=== PATIENT | male | born 1975 | race Caucasian/White ===

== ENCOUNTER 2017-04-23 15:15 | Emergency (ER) | payer SELFPAY ==
[~2017-04-23] VITALS: Ht 172.7 cm; Wt 79.5 kg
[2017-04-23 15:16] VITALS: BP 118/62; PULSE 82; RESP 20; TEMP 97.8; O2SAT 96
--- NOTE | 2017-04-23 15:21 | PD ---
Physical Exam Time Seen by Provider: 15:21 Narrative 41 y/o male daily drinker presents for evaluation of violent thoughts for 1.5 months. Endorses methamphetamine use. Vital signs reviewed. Seen at triage desk. Awaiting bed placement. Data Data Last Documented VS Vital Signs Date Time Temp Pulse Resp B/P Pulse Ox O2 Delivery O2 Flow Rate FiO2 04/23/17 15:16 97.8 82 20 118/62 96 Room Air [facility] Medical Record Reviewed: Yes Supervised Visit with MANAN: Darek Desai April 23, 2017 15:21
[2017-04-23 15:36] LABS: MEAN CORPUSCULAR HGB CONC 36.6 % (32.0-36.0)
--- NOTE | 2017-04-23 15:38 | PD ---
HPI Chief Complaint: Alcohol/Drug Intoxication Time Seen by Provider: 15:34 Travel History International Travel<30 days: No Contact w/Intl Traveler<30days: No Traveled to known affect area: No History of Present Illness HPI 41-year-old male arrives stating he has right elbow pain in his head so for several days. He believes the has a splinter in the right elbow which has caused swelling and erythema and tenderness. The pain is constant. Furthermore he explains he needs detox from alcoholism. He states he is a danger to himself and society due to alcoholism. He reports drinking about 1 gallon of alcohol daily. He states that he last drank about one hour ago. He states he will harm others in order to obtain alcohol from people. He also reports abusing amphetamines. During the history of present illness he stated "I'm about to kill himself." PFSH Past Medical History Arthritis: No Asthma: No Autoimmune Disease: No Blood Disorders: No Anxiety: No Depression: No Heart Rhythm Problems: No Cancer: No Cardiovascular Problems: No High Cholesterol: No Chest Pain: No Congestive Heart Failure: No COPD: No Cerebrovascular Accident: No Diabetes: No Diminished Hearing: No Endocrine: No GERD: No Genitourinary: No Headaches: No Hepatitis: No Hiatal Hernia: No Hypertension: No Immune Disorder: No Kidney Stones: No Musculoskeletal: No Neurologic: No Psychiatric: No Reproductive: No Respiratory: No Migraines: No Myocardial Infarction: Yes (PT STATES "COCAINE INDUCED") Renal Failure: No Seizures: No Sickle Cell Disease: No Sleep Apnea: No Thyroid Disease: No Ulcer: No Past Surgical History Abdominal Surgery: No Appendectomy: No Cardiac Surgery: No Cholecystectomy: No Ear Surgery: No Endocrine Surgery: No Eye Surgery: No Genitourinary Surgery: No Oral Surgery: No Thoracic Surgery: No Other Surgery: Yes ( [facility] Social History Alcohol Use: Yes (per hx..[employer], 12-24 PK BEER A DAY) Tobacco Use: Yes (1/2 PK A DAY) Substance Use: Yes Allergies-Medications (Allergen,Severity, Reaction): Coded Allergies: No Known Allergies (Verified , 04/23/17) Reported Meds & Prescriptions Reported Meds & Active Scripts Active No Active Prescriptions or Reported Medications Review of Systems ROS Limitations: Intoxication Physical Exam Narrative GENERAL:41-year-old male well-nourished well-developed no acute distress SKIN: Focused skin assessment warm/dry. HEAD: Atraumatic. Normocephalic. EYES: Pupils equal and round. No scleral icterus. No injection or drainage. ENT: No nasal bleeding or discharge. Mucous membranes pink and moist. NECK: Trachea midline. No JVD. CARDIOVASCULAR: Regular. Tachycardia. RESPIRATORY: No accessory muscle use. Clear to auscultation. Breath sounds equal bilaterally. GASTROINTESTINAL: Abdomen soft, non-tender, nondistended. Hepatic and splenic margins not palpable. MUSCULOSKELETAL: No obvious deformities. No clubbing. No cyanosis. No edema. Erythema/tenderness/swelling R olecranon; no crepitus. NEUROLOGICAL: Awake and alert. No obvious cranial nerve deficits. Motor grossly within normal limits. Normal speech. PSYCHIATRIC: Appropriate mood and affect; insight and judgment normal. Data Data Last Documented VS Vital Signs Date Time Temp Pulse Resp B/P Pulse Ox O2 Delivery O2 Flow Rate FiO2 04/23/17 15:16 97.8 82 20 118/62 96 Room Air Vital signs reviewed Orders Complete Blood Count With Diff (04/23/17 15:34) Comprehensive Metabolic Panel (04/23/17 15:34) Iv Access Insert/Monitor (04/23/17 15:34) Psych Screen (04/23/17 15:34) Lorazepam Inj (Ativan Inj) (04/23/17 15:45) Drug Screen, Random Urine (04/23/17 15:34) Alcohol (Ethanol) (04/23/17 15:34) Salicylates (Aspirin) (04/23/17 15:34) Tylenol (Acetaminophen) (04/23/17 15:34) Sodium Chlor 0.9% 1000 Ml Inj (Ns 1000 M (04/23/17 15:45) Sodium Chlor 0.9% 1000 Ml Inj (Ns 1000 M (04/23/17 15:45) Labs Laboratory Tests Test 04/23/17 15:40 White Blood Count 5.8 TH/MM3 Red Blood Count 4.24 MIL/MM3 Hemoglobin 13.5 GM/DL Hematocrit 36.8 % Mean Corpuscular Volume 86.8 FL Mean Corpuscular Hemoglobin 31.8 PG Mean Corpuscular Hemoglobin 36.6 % Concent Red Cell Distribution Width 12.8 % Platelet Count 282 TH/MM3 Mean Platelet Volume 6.9 FL Neutrophils (%) (Auto) 64.4 % Lymphocytes (%) (Auto) 20.8 % Monocytes (%) (Auto) 9.4 % Eosinophils (%) (Auto) 4.1 % Basophils (%) (Auto) 1.3 % Neutrophils # (Auto) 3.7 TH/MM3 Lymphocytes # (Auto) 1.2 TH/MM3 Monocytes # (Auto) 0.5 TH/MM3 Eosinophils # (Auto) 0.2 TH/MM3 Basophils # (Auto) 0.1 TH/MM3 CBC Comment AUTO DIFF Differential Comment AUTO DIFF CONFIRMED Sodium Level 134 MEQ/L Potassium Level 3.5 MEQ/L Chloride Level 99 MEQ/L Carbon Dioxide Level 27.5 MEQ/L Anion Gap 8 MEQ/L Blood Urea Nitrogen 4 MG/DL Creatinine 0.85 MG/DL Estimat Glomerular Filtration 99 ML/MIN Rate Random Glucose 326 MG/DL Calcium Level 7.9 MG/DL Total Bilirubin 0.4 MG/DL Aspartate Amino Transf 66 U/L (AST/SGOT) Alanine Aminotransferase 97 U/L (ALT/SGPT) Alkaline Phosphatase 169 U/L Total Protein 7.4 GM/DL Albumin 3.2 GM/DL Salicylates Level 4.4 MG/DL Urine Opiates Screen NEG Acetaminophen Level LESS THAN 2.0 MCG/ML Urine Barbiturates Screen NEG Urine Amphetamines Screen POS Urine Benzodiazepines Screen NEG Urine Cocaine Screen POS Urine Cannabinoids Screen POS Ethyl Alcohol Level 104 MG/DL MDM Medical Decision Making Medical Screen Exam Complete: Yes Emergency Medical Condition: Yes Medical Record Reviewed: Yes Differential Diagnosis Altered mental status/psychosis due to infection/environmental exposure/ metabolic abnormality, polypharmacy, alcohol abuse/intoxication, illicit or prescribed drug abuse, malingering/secondary gain, non-organic psychiatric disease Narrative Course CBC & BMP Diagram 04/23/17 15:40 AST 66 ALT 97 Alk phos 169 Urine tox positive for amphetamines/cocaine/cannabinoids EtOH 104 APAP 2.0 Slicylates 4.4 The hyperglycemia is noted. The patient has no history of hyperglycemia however in the setting of cocaine and amphetamine abuse with alcohol intoxication it is not unexpected finding. He has had elevated blood glucose measurements in the past. The history of present illness, ROS, physical exam, review of records and medical workup performed for today's visit have reasonably safely excluded organic etiologies for the patient's presenting complaint. We will continue to monitor the patient carefully in the ER until time of evaluation by the psychiatry service. We are available for any additional medical assistance if needed during the patient's ER course. Disposition per discretion of psychiatry is appreciated. Diagnosis Primary Impression: Alcoholism /alcohol abuse Additional Impressions: Polysubstance abuse Hyperglycemia Scripts No Active Prescriptions or Reported Meds Chiki Montalvo MD April 23, 2017 15:38
[2017-04-23] MEDS ORDERED: SODIUM CHLOR 0.9% 1000 ML INJ 1,000 ML IV ONE ×2 (15:45)
[2017-04-23] MEDS ORDERED: LORazepam 2 MG/ML VIAL IV ONE (15:45)
[2017-04-23 16:06] LABS: AUTOMATED NEUTROPHIL # 3.7 TH/MM3 (1.8-7.7); BASOPHIL # 0.1 TH/MM3 (0-0.2); BASOPHIL % 1.3 % (0.0-2.0); EOSINOPHIL # 0.2 TH/MM3 (0-0.4); EOSINOPHIL % 4.1 % (0.0-4.0); HEMATOCRIT 36.8 % (39.0-51.0); LYMPH % 20.8 % (9.0-44.0); LYMPHOCYTE # 1.2 TH/MM3 (1.0-4.8); MEAN CELL VOLUME 86.8 FL (80.0-100.0); MEAN CORPUSCULAR HEMOGLOBIN 31.8 PG (27.0-34.0); MONO % 9.4 % (0.0-8.0); NEUT % 64.4 % (16.0-70.0); PLATELET COUNT 282 TH/MM3 (150-450); RED BLOOD COUNT 4.24 MIL/MM3 (4.50-5.90); RED CELL DISTRIBUTION WIDTH 12.8 % (11.6-17.2); WHITE BLOOD COUNT 5.8 TH/MM3 (4.0-11.0)
[2017-04-23 16:12] LABS: HEMO FLAGS AUTO DIFF
[2017-04-23 16:28] LABS: AMPHETAMINE, URINE POS (NEG); BARBITURATES, URINE NEG (NEG); COCAINE, URINE POS (NEG)
[2017-04-23 16:32] LABS: ANION GAP 8 MEQ/L (5-15); AST (GOT) 66 U/L (15-37); BICARBONATE 27.5 MEQ/L (21.0-32.0); BLOOD UREA NITROGEN 4 MG/DL (7-18); CHLORIDE 99 MEQ/L (98-107); GLOMERULAR FILTRATION RATE 99 ML/MIN (>89); POTASSIUM 3.5 MEQ/L (3.5-5.1); SODIUM (NA) 134 MEQ/L (136-145)
[2017-04-23 16:36] LABS: ACETAMINOPHEN LESS THAN 2.0 MCG/ML (10.0-30.0); ALKALINE PHOSPHATASE 169 U/L (45-117); ALT (GPT) 97 U/L (12-78); TOTAL BILIRUBIN ADULT 0.4 MG/DL (0.2-1.0)
[2017-04-23 17:00] LABS: SCAN/DIFF AUTO DIFF CONFIRMED
[2017-04-23] MEDS ORDERED: CLIN1CAP5 PO (17:47)
[2017-04-23] MEDS ORDERED: CLINDAMYCIN 150 MG CAP PO ONE (18:00)
[2017-04-23] MEDS ORDERED: INSULIN NovoLIN REGULAR SUPPLEMENTAL SCALE SQ SCH (21:00)
--- NOTE | 2017-04-23 21:33 | PD ---
Physical Exam Date Seen by Provider: April 23, 2017 Time Seen by Provider: 21:29 Narrative Patient was seen by the previous ER physician. I went and reassessed the patient upon nurse's request. Patient told me that he has been on alcohol and cocaine and now wants to get cleaned up. He had detox before but didn't work. He wanted us to help him get to [facility]. He also said that he sometimes feels desperate when he cannot get his drugs at which point he does have homicidal thoughts. He has been depressed because of this. But no suicidal ideation. Charge nurse was there when this conversation happened. Patient will be given a dose of Librium and I will discharge him. He needs to go to [facility] again in the morning and see if he can find a bed for his detox. Patient understands this plan. Data Data Last Documented VS Vital Signs Date Time Temp Pulse Resp B/P Pulse Ox O2 Delivery O2 Flow Rate FiO2 04/23/17 15:16 97.8 82 20 118/62 96 Room Air Orders Complete Blood Count With Diff (04/23/17 15:34) Comprehensive Metabolic Panel (04/23/17 15:34) Iv Access Insert/Monitor (04/23/17 15:34) Psych Screen (04/23/17 15:34) Lorazepam Inj (Ativan Inj) (04/23/17 15:45) Drug Screen, Random Urine (04/23/17 15:34) Alcohol (Ethanol) (04/23/17 15:34) Salicylates (Aspirin) (04/23/17 15:34) Tylenol (Acetaminophen) (04/23/17 15:34) Sodium Chlor 0.9% 1000 Ml Inj (Ns 1000 M (04/23/17 15:45) Sodium Chlor 0.9% 1000 Ml Inj (Ns 1000 M (04/23/17 15:45) Clindamycin (Cleocin) (04/23/17 18:00) Insulin Human Reg Supp Scale (Novolin R (04/23/17 21:00) Chlordiazepoxide (Librium) (04/23/17 21:15) Labs Laboratory Tests Test 04/23/17 15:40 White Blood Count 5.8 TH/MM3 Red Blood Count 4.24 MIL/MM3 Hemoglobin 13.5 GM/DL Hematocrit 36.8 % Mean Corpuscular Volume 86.8 FL Mean Corpuscular Hemoglobin 31.8 PG Mean Corpuscular Hemoglobin 36.6 % Concent Red Cell Distribution Width 12.8 % Platelet Count 282 TH/MM3 Mean Platelet Volume 6.9 FL Neutrophils (%) (Auto) 64.4 % Lymphocytes (%) (Auto) 20.8 % Monocytes (%) (Auto) 9.4 % Eosinophils (%) (Auto) 4.1 % Basophils (%) (Auto) 1.3 % Neutrophils # (Auto) 3.7 TH/MM3 Lymphocytes # (Auto) 1.2 TH/MM3 Monocytes # (Auto) 0.5 TH/MM3 Eosinophils # (Auto) 0.2 TH/MM3 Basophils # (Auto) 0.1 TH/MM3 CBC Comment AUTO DIFF Differential Comment AUTO DIFF CONFIRMED Sodium Level 134 MEQ/L Potassium Level 3.5 MEQ/L Chloride Level 99 MEQ/L Carbon Dioxide Level 27.5 MEQ/L Anion Gap 8 MEQ/L Blood Urea Nitrogen 4 MG/DL Creatinine 0.85 MG/DL Estimat Glomerular Filtration 99 ML/MIN Rate Random Glucose 326 MG/DL Calcium Level 7.9 MG/DL Total Bilirubin 0.4 MG/DL Aspartate Amino Transf 66 U/L (AST/SGOT) Alanine Aminotransferase 97 U/L (ALT/SGPT) Alkaline Phosphatase 169 U/L Total Protein 7.4 GM/DL Albumin 3.2 GM/DL Salicylates Level 4.4 MG/DL Urine Opiates Screen NEG Acetaminophen Level LESS THAN 2.0 MCG/ML Urine Barbiturates Screen NEG Urine Amphetamines Screen POS Urine Benzodiazepines Screen NEG Urine Cocaine Screen POS Urine Cannabinoids Screen POS Ethyl Alcohol Level 104 MG/DL [facility] Supervised Visit with MANAN: No Diagnosis Primary Impression: Alcoholism /alcohol abuse Additional Impressions: Hyperglycemia Polysubstance abuse Referrals: Primary Care Physician Additional Instruction: Go to [facility] and try checking herself in for drug and alcohol rehabilitation. Scripts Clindamycin 150 Mg Mgy157 Mg PO Q8HR 14 Days Ref 0 Prov:Chiki Montalvo MD 04/23/17 Disposition: 01 DISCHARGE HOME Condition: Stable Deb Dubon MD April 23, 2017 21:33
== END 2017-04-23 21:50 | disposition home or self-care (01) ==
LOC: NEPE 15:15
DX: F10.20 Alcohol dependence, uncomplicated (principal); F19.10 Other psychoactive substance abuse, uncomplicated; M70.31 Other bursitis of elbow, right elbow; F15.10 Other stimulant abuse, uncomplicated; R73.9 Hyperglycemia, unspecified
CPT/HCPCS: 80053; 80307; 85025; 96361; 96374; 99284; J2060; J7030

== ENCOUNTER 2017-04-27 13:07 | Emergency (ER) | payer SELFPAY ==
[~2017-04-27 13:07] MED LIST: CLIN1CAP5 PO
== END 2017-04-27 13:48 | disposition left against medical advice (07) ==
LOC: NED 13:07
DX: M25.521 Pain in right elbow (principal); Z53.21 Procedure and treatment not carried out due to patient leaving prior to being seen by health care provider
CPT/HCPCS: 99281